=== PATIENT | female | born 1960 | race African-American/Black ===

== ENCOUNTER 2019-10-17 09:12 | Emergency (ER) | payer OTHER ==
[2019-10-17 09:22] VITALS: BP 163/85; PULSE 94; TEMP 97.9
--- NOTE | 2019-10-17 10:15 | PDOC ---
History of Present Illness - General Chief Complaint: Wound Stated Complaint: LF HAND FINGERNAIL PAIN Time Seen by Provider: 10/17/19 09:39 History Source: Patient Exam Limitations: No Limitations Past History - Travel Traveled outside of the country in the last 30 days: No Close contact w/someone who was outside of country & ill: No - Past Medical History Allergies/Adverse Reactions: Allergies Allergy/AdvReac Type Severity Reaction Status Date / Time Sulfa (Sulfonamide Allergy Verified 10/17/19 09:23 Antibiotics) sumatriptan [From Imitrex] Allergy Verified 10/17/19 09:23 Home Medications: Ambulatory Orders Clindamycin [Cleocin -] 300 mg PO TID #21 capsule 10/17/19 Cyclobenzaprine HCl [Flexeril -] 10 mg PO HS 10/17/19 Famotidine [Pepcid] 40 mg PO DAILY 10/17/19 COPD: No Other medical history: CERVICAL NEUROPATHY - Surgical History Cholecystectomy: Yes Neurologic Surgery: Yes - Immunization History Immunization Up to Date: Yes - Psycho Social/Smoking Cessation Hx Smoking History: Never smoked Have you smoked in the past 12 months: No Information on smoking cessation initiated: No Hx Alcohol Use: No Drug/Substance Use Hx: No Review of Systems - Review of Systems Able to Perform ROS?: Yes Comments:: 10/17/19 10:00 CONSTITUTIONAL: Absent: fever, chills, diaphoresis, generalized weakness, malaise, loss of appetite MUSCULOSKELETAL: Absent: myalgia, arthralgia, joint swelling SKIN: Present: pain to the L 4th finger nail. Absent: rash, itching, pallor NEUROLOGIC: Absent: headache, focal weakness or paresthesias, dizziness, unsteady gait, seizure, mental status changes, bladder or bowel incontinence PSYCHIATRIC: Absent: anxiety, depression, suicidal or homicidal ideation, hallucinations. Is the patient limited Sinhala proficient: No *Physical Exam - Vital Signs Last Vital Signs Temp Pulse Resp BP Pulse Ox 97.9 F 94 H 17 163/85 98 10/17/19 09:18 10/17/19 09:18 10/17/19 09:18 10/17/19 09:18 10/17/19 09:18 - Physical Exam 10/17/19 12:18 GENERAL: The patient is awake, alert, and fully oriented, in no acute distress. HEAD: Normal with no signs of trauma. EYES: Pupils equal, round and reactive to light, extraocular movements intact, sclera anicteric, conjunctiva clear. EXTREMITIES: Normal range of motion, no edema. NEUROLOGICAL: Normal speech, normal gait. PSYCH: Normal mood, normal affect. SKIN: Induration present to the lateral aspect of the L 4th finger nail. No fluctuance noted. Warm, Dry, normal turgor, no rashes or lesions noted. Medical Decision Making - Medical Decision Making 10/17/19 12:37 The patient is a 58 y/o F who presents to the ER today for L 4th finger pain. She states that this started one week ago and saw her PCP for the issue. She was prescribed augmenting. Today she notes the area is still painful and it hurts to touch. She states that it has not drained. Denies fevers, chills, numbness/weakness/tingling to the affected extremity. Pt is R hand dominant. A/P: L 4th finger pain on exam patient has induration to the lateral aspect of the left fourth finger at the tip of the fingernail consistent with a paronychia. There is no fluctuance to be drained We will switch patient's antibiotics to clindamycin and give good return precautions should an abscess form Discharge home with primary care follow-up I discussed the physical exam findings, ancillary test results and final diagnoses with the patient. I answered all of the patient's questions. The patient was satisfied with the care received and felt comfortable with the discharge plan and treatment plan. The Patient agrees to follow up with the primary care physician/specialist within 24-72 hours. Return precautions were given. Discharge - Discharge Information Problems reviewed: Yes Clinical Impression/Diagnosis: Paronychia Condition: Stable Disposition: HOME - Admission No - Additional Discharge Information Prescriptions: Clindamycin [Cleocin -] 300 mg PO TID #21 capsule - Follow up/Referral Referrals: Nguyen Pittman MD [Staff Physician] - - Patient Discharge Instructions Patient Printed Discharge Instructions: DI for Paronychia Additional Instructions: You were evaluated for your finger pain today. It is most likely an infection. Please take the clindamycin 3 times a day as directed. Soak the hand 4-5 times a day. Return in 2 days should the area bubbled up and look pussy so we can drain it. Follow-up with your primary care doctor this week. Return to the ER for any new or worsening symptoms. - Post Discharge Activity Work/Back to School Note: Back to Work
== END 2019-10-17 10:55 | disposition home or self-care (01) ==
LOC: JERFT 09:12
DX: L03.012 Cellulitis of left finger (principal); Z88.2 Allergy status to sulfonamides; Z88.8 Allergy status to other drugs, medicaments and biological substances
CPT/HCPCS: 99282-25

== ENCOUNTER 2024-05-09 20:26 | Emergency (ER) | payer OTHER ==
[2024-05-09 20:34] VITALS: BP 163/64; PULSE 98; RESP 16; TEMP 98.5; BMI 31.2
== END 2024-05-10 00:30 | disposition home or self-care (01) ==
LOC: JER 20:26
DX: R60.0 Localized edema (principal)
CPT/HCPCS: 93970-TC; 99284-25

== ENCOUNTER 2024-05-26 13:25 | Emergency (ER) | payer OTHER ==
[2024-05-26 13:57] VITALS: BP 124/76; PULSE 87; RESP 18; TEMP 98; BMI 29.2
== END 2024-05-26 15:50 | disposition home or self-care (01) ==
LOC: JER 13:25 → JERFT 13:25
DX: M79.641 Pain in right hand (principal); W19.XXXA Unspecified fall, initial encounter
CPT/HCPCS: 73110-TC-RT-FY; 73130-TC-RT-FY; 99283-25

== ENCOUNTER 2024-09-10 15:41 | Emergency (ER) | payer OTHER ==
[2024-09-10 16:06] VITALS: PULSE 88; RESP 18; TEMP 98.8; BMI 28.7
[2024-09-10 17:22] VITALS: BP 177/93
[2024-09-10] MEDS ORDERED: LOSARTAN POTASSIUM 50 MG TABLET ONE (18:16)
[2024-09-10] MEDS: LOSARTAN POTASSIUM 50 MG TABLET PO ONE (18:18)
== END 2024-09-10 18:53 | disposition home or self-care (01) ==
LOC: JER 15:41
DX: H53.8 Other visual disturbances (principal); H57.12 Ocular pain, left eye
CPT/HCPCS: 99283-25

== ENCOUNTER 2024-09-11 22:44 | Emergency (ER) | payer OTHER ==
[2024-09-11 22:54] VITALS: BP 154/78; PULSE 83; RESP 18; TEMP 98.6; BMI 29.0
[2024-09-12] MEDS ORDERED: LOSARTAN POTASSIUM 50 MG TABLET ONE (00:01)
[2024-09-12] MEDS: LOSARTAN POTASSIUM 50 MG TABLET PO ONE (00:05)
== END 2024-09-12 02:07 | disposition left against medical advice (07) ==
LOC: JER 22:44
DX: H53.8 Other visual disturbances (principal)
CPT/HCPCS: 70450-TC; 99284-25

== ENCOUNTER 2025-03-04 13:14 | Emergency (ER) | payer OTHER ==
[2025-03-04 13:25] VITALS: BP 163/93; PULSE 82; RESP 18; TEMP 98.8; BMI 29.2
[2025-03-04] MEDS ORDERED: LOSARTAN POTASSIUM 50 MG TABLET ONE (14:33)
[2025-03-04] MEDS ORDERED: KETOROLAC TROMETHAMINE 30 MG/1 ML VIAL ONE (14:34)
[2025-03-04] MEDS: LOSARTAN POTASSIUM 50 MG TABLET PO ONE (14:39)
[2025-03-04] MEDS: KETOROLAC TROMETHAMINE 30 MG/1 ML VIAL IM ONE (14:39)
== END 2025-03-04 15:23 | disposition home or self-care (01) ==
LOC: JERFT 13:14
PROC: 3E0233Z Introduction of Anti-inflammatory into Muscle, Percutaneous Approach (ICD-10-PCS; principal; 2025-03-04)
DX: M25.531 Pain in right wrist (principal); W01.0XXA Fall on same level from slipping, tripping and stumbling without subsequent striking against object, initial encounter
CPT/HCPCS: 73110-TC-RT-FY; 73130-TC-RT-FY; 96372; 99284-25

== ENCOUNTER 2025-08-17 19:40 | Emergency (ER) | payer OTHER ==
[2025-08-17 19:55] VITALS: BP 135/76; PULSE 77; RESP 18; TEMP 98.4; BMI 28.9
[2025-08-17] MEDS ORDERED: ACETAMINOPHEN 325 MG TABLET (FP) ONE (21:31)
[2025-08-17] MEDS ORDERED: diphenhydrAMINE HCL 12.5 MG/5 ML UNIT-DOSE CUPS ONE (21:32)
[2025-08-17] MEDS: ACETAMINOPHEN 325 MG TABLET (FP) PO ONE (21:36)
[2025-08-17] MEDS: diphenhydrAMINE HCL 25 MG CAPSULE (FP) PO ONE (21:48)
[2025-08-17] MEDS ORDERED: AMOX TR/POT CLAV 875MG/125MG TABLETS (FP) ONE (22:09)
[2025-08-17] MEDS: diphenhydrAMINE HCL 12.5 MG/5 ML UNIT-DOSE CUPS PO ONE (22:19)
[2025-08-17] MEDS: AMOX TR/POT CLAV 875MG/125MG TABLETS (FP) PO ONE (22:19)
[2025-08-17] MEDS ORDERED: ERYTHROMYCIN 0.5% OPHTHALMIC OINTMENT 3.5 GM TUBE ONE (23:06)
[2025-08-18] MEDS ORDERED: ERYTHROMYCIN 0.5% OPHTHALMIC OINTMENT 3.5 GM TUBE OS SCH ×2 (10:00→23:09)
== END 2025-08-17 23:39 | disposition home or self-care (01) ==
LOC: JER 19:40
DX: S00.261A Insect bite (nonvenomous) of right eyelid and periocular area, initial encounter (principal); W57.XXXA Bitten or stung by nonvenomous insect and other nonvenomous arthropods, initial encounter
CPT/HCPCS: 99283-25